=== PATIENT | male | born 1950 | race Caucasian/White ===

== ENCOUNTER → 2017-11-05 | Outpatient (CLI) | payer MEDICARE, BC ==
--- NOTE | 2017-11-05 12:00 | ECHOF ---
Referral Reason:R01.1 Cardiac Murmur MEASUREMENTS -------- HEIGHT: 154.9 cm WEIGHT: 47.6 kg BP: IVSd: 0.6 cm (0.6 - 1.1) LVIDd: 2.6 cm (3.9 - 5.3) LVPWd: 0.9 cm (0.6 - 1.1) IVSs: 1.2 cm LVIDs: 1.4 cm LVPWs: 1.3 cm LAESV Index (A-L): 27.08 ml/m Ao Diam: 3.1 cm (2.0 - 3.7) AV Cusp: 2.2 cm (1.5 - 2.6) LA Diam: 3.9 cm (2.7 - 3.8) MV EXCURSION: 18.221 mm (> 18.000) MV EF SLOPE: 67 mm/s (70 - 150) EPSS: 1.6 cm MV E Mark: 0.86 m/s MV DecT: 140 ms MV A Mark: 0.72 m/s MV E/A Ratio: 1.20 RAP: 5.00 mmHg RVSP: 20.45 mmHg FINDINGS -------- Sinus rhythm. This was a technically good study. The left ventricular size is normal. Left ventricular wall thickness is normal. Overall left vent ricular systolic function is normal with, an EF between 55 - 60 %. The right ventricle is normal in size. The left atrium is normal in size. The right atrium is normal in size. The aortic valve is trileaflet, and appears structurally normal. No aortic stenosis or regurgitation. There is trace mitral regurgitation. Mild tricuspid regurgitation present. The right ventricular systolic pressure, as measured by Doppl er, is 20.45mmHg. Pulmonic valve appears structurally normal. The aortic root size is normal. Normal inferior vena cava with normal inspiratory collapse consistent with estimated right atrial pre ssure of 5 mmHg. The pericardium is normal. CONCLUSIONS -------- 1. Sinus rhythm. 2. This was a technically good study. 3. The left ventricular size is normal. 4. Left ventricular wall thickness is normal. 5. Overall left ventricular systolic function is normal with, an EF between 55 - 60 %. 6. The right ventricle is normal in size. 7. The left atrium is normal in size. 8. The right atrium is normal in size. 9. The aortic valve is trileaflet, and appears structurally normal. No aortic stenosis or regurgitati on. 10. There is trace mitral regurgitation. 11. Mild tricuspid regurgitation present. 12. The right ventricular systolic pressure, as measured by Doppler, is 20.45mmHg. 13. Pulmonic valve appears structurally normal. 14. The aortic root size is normal. 15. Normal inferior vena cava with normal inspiratory collapse consistent with estimated right atrial pressure of 5 mmHg. 16. The pericardium is normal. CARAMEL CANDY MAKER: Carmencita Cabrera RDCS
== END | disposition home or self-care (01) ==
LOC: RADECHMAIN 08:03
PROVIDERS: ATTEND Family Medicine
DX: I07.1 Rheumatic tricuspid insufficiency (principal)
CPT/HCPCS: 93306

== ENCOUNTER → 2021-02-12 | Outpatient (CLI) | payer MEDICARE ==
--- NOTE | 2021-02-12 07:26 | US ---
EXAMINATION TYPE: US venous doppler duplex LE DATE OF EXAM: 02/12/2021 7:12 AM COMPARISON: NONE CLINICAL HISTORY: R60.0 Edema of left lower leg. leg pain SIDE PERFORMED: Bilateral TECHNIQUE: The lower extremity deep venous system is examined utilizing real time linear array sonog melvina with graded compression, doppler sonography and color-flow sonography. VESSELS IMAGED: Common Femoral Vein Deep Femoral Vein Greater Saphenous Vein * Femoral Vein Popliteal Vein Small Saphenous Vein * Proximal Calf Veins (* superficial vessels) There is normal flow, compressibility, vascular waveforms. Right Leg: Negative for DVT Left Leg: Negative for DVT IMPRESSION: No evident deep venous thrombosis within the lower extremities from the level of the knee s centrally
== END | disposition home or self-care (01) ==
LOC: RADUSWWP 06:49
PROVIDERS: ATTEND Family Medicine
DX: R60.0 Localized edema (principal)
CPT/HCPCS: 93970

== ENCOUNTER → 2022-02-28 | Outpatient (CLI) | payer MEDICARE ==
--- NOTE | 2022-02-28 11:13 | CA ---
Exercise Nuclear Stress Test Report Name: Christophe Lovelace Exam Date: 02/28/2022 09:38 Exam Location: [facility] Ht (in): 60 Wt (lb): 105 BSA: 1.42 Ordering Phys: Don Kolb MD Referring Phys: HELENA, Technologist: Gerry Hay Age: 71 Gender: M : 1950 Procedure CPT: Indications: r06.02 ICD-10 Codes: Patient History: Medications: BYSTOLIC Meds past 24 hrs: Pretest Chest Pain: STRESS TEST Dev Protocol Exercise Duration (min:sec): 10:[address] Depressions (mm): Angina Score: Haro Score: Resting HR (bpm): 95 Peak HR (bpm): 133 Resting BP (mmHg): 164 / 82 Peak BP (mmHg): 205 / 77 MPHR: 148 Target HR: 126 % MPHR: 90 METS: 12.1 Total Dose: Peak Dose: Atropine: Double Product: 81598 BP Response: Stress Termination: Reached target heart rate Stress Symptoms: NO SYMPTOMS Stress Summary: ECG ANALYSIS Resting ECG: Stress ECG: CONCLUSIONS Patient underwent Cardiolite exercise stress test with a Dev protocol treadmill stress test. Patient exercised into Stage 3 for a total of 10 minutes reaching a total of 12.1 METS. Patient's maximum heart rate was 133 which represented 89 % age- predicted maximum heart rate. Stress EKG findings: At baseline patient's EKG showed normal sinus rhythm, normal axis, no significant ST or T wave abnormalities. At peak exercise, EKG showed 1-1.[address] depressions in the inferior and lateral leads. Conclusions: 1. Equivocal EKG response to exercise 1-1.[address] depressions in the inferior and lateral leads. Recommend correlation with nuclear portion. 2. Good exercise capacity. 3. Nuclear portion reported separately Dr. Alex Murrell DO (Electronically Signed) Final Date: 28 February 2022 11:12
--- NOTE | 2022-02-28 11:30 | NM ---
EXAMINATION TYPE: NM stress cardiolite complete DATE OF EXAM: 02/28/2022 COMPARISON: NONE HISTORY: Chest pain TECHNIQUE: After the intravenous administration of 9.5 mCi Tc 99m Sestamibi - Rest images obtained 4 5 minutes post injection. The patient exercised using a ASHLEY protocol and 1 minute prior to peak e xercise was injected with 25.6 mCi Tc 99m Sestamibi - Stress images obtained 40 minutes post injectio n. FINDINGS: Targeted heart rate was achieved during performance of the study. Review of stress and rest SPECT mateus ges demonstrates no distinct perfusion abnormality. Gated analysis shows normal wall motion with an estimated left ventricular ejection fraction of 64 %. IMPRESSION: No scintigraphic evidence for reversible ischemia
== END | disposition home or self-care (01) ==
LOC: RADNMMAIN 07:54
PROVIDERS: ATTEND Family Medicine
DX: R06.02 Shortness of breath (principal)
CPT/HCPCS: 93017; 78452; A9500